=== PATIENT | male | born 1945 | race Caucasian/White ===

== ENCOUNTER 2024-05-02 12:46 | Emergency (ER) | payer MEDICARE, OTHER, SELFPAY ==
[2024-05-02 12:55] VITALS: BP 129/66; PULSE 95; TEMP 37.1; O2SAT 95; BMI 31.0
--- NOTE | 2024-05-02 13:07 | ED_ITS ---
HPI - Male Genitourinary 2 General: Chief complaint: Urogenital-Male Stated complaint: high fever, blood in urine, dr sent Time Seen by Provider: 05/02/24 13:04 History of Present Illness: 78-year-old male presents emergency room with complaints of elevated temp and hematuria. He has not felt well for the last several days. He was at the outpatient clinic earlier today and reportedly had a temp of 103 and had hematuria on a urine dip. States his temp is improved. He is not having any chest pain he has had a slight cough he has also had some myalgias. Initially had some loose stools but that has resolved. Associated symptoms: Reports hematuria; Deny dysuria Related Data Allergies Allergy/AdvReac Type Severity Reaction Status Date / Time Penicillins Allergy Unknown Verified 05/02/24 13:02 sulfamethoxazole (From Allergy Unknown Verified 05/02/24 13:02 Bactrim) trimethoprim (From Bactrim) Allergy Unknown Verified 05/02/24 13:02 Review of Systems 2 Const: Denies: fever(s) or chills Card: Denies: chest pain Resp: Denies: dyspnea GI: Denies: abdominal pain : Reports: hematuria; Denies: dysuria, urinary frequency or urinary urgency Musc: Denies: neck pain or back pain Skin/Breast: Denies: rash Physical Exam 2 Const: GENERAL APPEARANCE: cooperative ORIENTATION/CONSCIOUSNESS: Yes awake, Yes oriented to person, Yes oriented to place and Yes oriented to time HENMT: COMMON NORMALS: normocephalic, atraumatic and hearing grossly normal bilaterally HEAD & SCALP: normocephalic and atraumatic Resp: COMMON NORMALS: normal respiratory effort, No retractions, No use of accessory muscles and clear to auscultation bilaterally AUSCULTATION: clear to auscultation bilaterally Cardio: COMMON NORMALS: regular rate, regular rhythm and No murmurs present (Cardio) RATE: regular rate RHYTHM: regular rhythm GI: COMMON NORMALS: Soft to palpation and No hepatosplenomegaly present A USCULTATION: Yes normoactive bowel sounds PALPATION: Yes Soft to palpation, No Tenderness to palpation present (GI), No Guarding due to palpation present (GI) and Yes No hepatosplenomegaly present Extremity: COMMON NORMALS: normal to inspection, capillary refill normal, no clubbing, cyanosis or edema, no calf tenderness and no pedal edema Neuro: SENSORIUM/ORIENTATION: Yes oriented to person, Yes oriented to place and Yes oriented to time Skin: COMMON NORMALS: no rashes or lesions noted GENERAL SKIN EXAM: no rashes or lesions noted Course 2 Vital Signs: Vital signs: Vital Signs Temperature 98.8 F 05/02/24 12:55 Pulse Rate 95 05/02/24 14:37 Respiratory Rate 15 05/02/24 13:50 Blood Pressure 130/67 05/02/24 14:37 Pulse Oximetry 96 05/02/24 14:37 Oxygen Delivery Me thod Room Air 05/02/24 12:55 MDM - Male Medical Decision Making Patient has no fever here no hematuria. Did get a chest x-ray there is no acute infiltrates. We first went to stand him and he is very weak and had difficulty with balance over the longer was up the better he got he was able to walk turn and go back to the room without any assistance. He does have some mild hyponatremia but not enough to make him severely symptomatic. At this point he can be discharged home I do recommend that he follow-up with a repeat sodium with his primary care doctor in the next few days. He currently is being treated by his urologist for a bladder infection recommend he complete the course of antibiotics Lab Data 05/02/24 13:26 05/02/24 13:26 Radiology Impressions Chest X-Ray 05/02/24 14:35 Impression: Atherosclerosis. Laboratory Results WBC 5.94 10^3/uL (3.29-11.43) 05/02/24 13: RBC 4.91 10^6/uL (3.85-5.65) 05/02/24 13:26 Hgb 14.20 g/dL (11.27-16.99) 05/02/24 13:26 Hct 41.4 % (37-53) 05/02/24 13:26 MCV 84.3 fl (82-101) 05/02/24 13:26 MCH 28.9 pg (27-33) 05/02/24 13: MCHC 34.3 g/dL (30-55) 05/02/24 13: RDW 14.0 % (12.1-15.1) 05/02/24 13:26 Plt Count 139 10^3/cmm (157-399) L 05/02/24 13:26 MPV 9.7 fL (7.4-10.4) 05/02/24 13:26 Neut % (Auto) 64.1 % 05/02/24 13:26 Lymph % (Auto) 22.7 % 05/02/24 13:26 [place] % (Auto) 8.6 % 05/02/24 13:26 Eos % (Auto) 4.2 % 05/02/24 13:26 Baso % (Auto) 0.2 % 05/02/24 13:26 Neut # (Auto) 3.81 10^3/uL (1.8-7.7) 05/02/24 13:26 Lymph # (Auto) 1.4 10^3/uL (0.8-4.8) 05/02/24 13:26 [place] # (Auto) 0.5 10^3/uL (0.2-0.9) 05/02/24 13:26 Eos # (Auto) 0.3 10^3/uL (0.0-0.8) 05/02/24 13:26 Baso # (Auto) 0.0 10^3/uL (0.0-0.1) 05/02/24 13:26 Nucleated RBC % (auto) 0 % 05/02/24 13: Nucleated RBCs # 0.0 /100WBC 05/02/24 13:26 Sodium 128 mmol/L (136-145) L 05/02/24 13:26 Potassium 3.9 mmol/L (3.5-5.1) 05/02/24 13:26 Chloride 95 mmol/L (98-107) L 05/02/24 13:26 Carbon Dioxide 20 mmol/L (22-29) L 05/02/24 13:26 Anion Gap 16.9 (5-19) 05/02/24 13:26 BUN 23 mg/dL (8-23) 05/02/24 13:26 Creatinine 1.0 mg/dL (0.7-1.2) 05/02/24 13:26 GFR Calculation Not Reportable 05/02/24 13:26 Glucose 92 mg/dL (65-115) 05/02/24 13:26 Calculated Osmolality 269 mOsm/kg (285-295) L 05/02/24 13:26 Calcium 8.4 mg/dL (8.5-10.5) L 05/02/24 13:26 Total Bilirubin 0.3 mg/dL (0.15-1.2) 05/02/24 13:26 AST 24 U/L (0-40) 05/02/24 13:26 ALT 23 U/L (0-41) 05/02/24 13:26 Alkaline Phosphatase 36 U/L (40-130) L 05/02/24 13:26 Total Protein 7.3 g/dL (6.6-8.7) 05/02/24 13:26 Albumin 3.8 g/dL (3.5-5.2) 05/02/24 13:26 Globulin 3.5 g/dL (1.3-4.6) 05/02/24 13:26 Urine Color Yellow (Yellow) 05/02/24 13:08 Urine Appearance Clear (CLEAR) 05/02/24 13:08 Urine pH 5.5 (5-7) 05/02/24 13:08 Ur Specific Alexander 1.024 (1.005-1.030) 05/02/24 13:08 Urine Protein 1+ (Negative) A 05/02/24 13:08 Urine Glucose (UA) Negative (Normal) 05/02/24 13:08 Urine Ketones 1+ (Negative) H 05/02/24 13:08 Urine Blood 2+ (Negative) A 05/02/24 13:08 Urine Nitrate Negative (Negative) 05/02/24 13:08 Urine Bilirubin Negative (Negative) 05/02/24 13:08 Urine Urobilinogen 0.2 mg/dL (Negative) 05/02/24 13:08 Ur Leukocyte Esterase Negative (Negative) 05/02/24 13:08 Urine RBC 0-4 /hpf (0-2) H 05/02/24 13:08 Urine WBC 0-4 /hpf (0-5) H 05/02/24 13:08 Ur Squamous Epith Cells 0-4 /hpf (0-5) H 05/02/24 13:08 Amorphous Sediment 1+ /hpf 05/02/24 13:08 Urine Bacteria Trace /hpf (NONE) 05/02/24 13:08 Hyaline Casts 0-4 /lpf H 05/02/24 13:08 Fine Granular Casts 0-4 /lpf H 05/02/24 13:08 Urine Mucus 1+ /hpf 05/02/24 13:08 Influenza A (PCR) Negative (Negative) 05/02/24 13:20 Influenza Type B (PCR) Negative (Negative) 05/02/24 13:20 RSV (PCR) Negative (Negative) 05/02/24 13:20 SARS-CoV-2 (PCR) Negative (Negative) 05/02/24 13:20 All radiology interpretation(s) finalized by discharge Discharge Plan Discharge Patient Disposition: Home Clinical Impression: Hyponatremia, Urinary tract infection Condition: Stable Discharge Orders: Discharge ED (Routine); Ordered 05/02/24 Ordered By: Moe Lopez Referrals: Gem Noriega FNP [Primary Care Provider] - Discharge Diet: Usual diet Discharge Activity: Resume usual activity Patient Instructions: Opioid Safety, Pain Management Activity Restrictions/Additional Instructions: Thank you for choosing [facility] for your healthcare needs today. It is very important that you follow up as instructed or that you return to the Emergency Department should you have concerns or if your condition changes or worsens in any way. You were seen in the emergency room complaining of generally not feeling well is having blood in the urine fever. We have no fever at the time you are seen in the ER. Your white count is normal. Urine did not show significant amount of blood. You reported that you are being treated by your urologist for a bladder infection recommend completing that course of antibiotics. You should recheck your sodium with your doctor in the next few days. Print Language: Cook Islander Coding Level of Care Code ED Deputy Director Of Nursing for Osmin Smith
[2024-05-02 13:17] LABS: Bilirubin Urine Negative (Negative); Blood Urine 2+ (Negative); Glucose Urine UA Negative (Normal); Ketones Urine 1+ (Negative); Leukocyte Esterase Urine Negative (Negative); Nitrate Urine Negative (Negative); Protein Urine 1+ (Negative); Specific Gravity, Urine 1.024 (1.005-1.030); Urine Appearance Clear (CLEAR); Urine Color Yellow (Yellow); Urobilinogen Urine 0.2 mg/dL (Negative); pH Urine 5.5 (5-7)
[2024-05-02 13:29] LABS: UA Manual Slide Review YES
[2024-05-02 13:30] LABS: Add Urine Microscopic? YES
[2024-05-02 13:31] LABS: Bacteria Urine TRACE /hpf; Mucus Urine 1+ /hpf; RBC Urine 0-4 /hpf (0-2); Squamous Epithelial Cell Urine 0-4 /hpf (0-5); WBC Urine 0-4 /hpf (0-5)
[2024-05-02 13:32] LABS: Add Urine Culture? No; Amorphous Sediment Urine 1+ /hpf; Fine Granular Casts Urine 0-4 /lpf; Hyaline Casts Urine 0-4 /lpf
[2024-05-02 13:50] VITALS: BP 156/73; PULSE 75; RESP 15; O2SAT 95
[2024-05-02 13:50] LABS: Basophils % 0.2 %; Eosinophils # 0.3 10^3/uL (0.0-0.8); Eosinophils % 4.2 %; Hematocrit 41.4 % (37-53); Lymphocytes # 1.4 10^3/uL (0.8-4.8); Lymphocytes % 22.7 %; Mean Corpuscular HGB Conc 34.3 g/dL (30-55); Mean Corpuscular Hemoglobin 28.9 pg (27-33); Mean Corpuscular Volume 84.3 fl (82-101); Mean Platelet Volume 9.7 fL (7.4-10.4); Monocytes # 0.5 10^3/uL (0.2-0.9); Monocytes % 8.6 %; Neutrophils # 3.81 10^3/uL (1.8-7.7); Neutrophils % 64.1 %; Nucleated Red Blood Cells % 0 %; Platelet Count 139 10^3/cmm (157-399); Red Blood Count 4.91 10^6/uL (3.85-5.65); White Blood Count 5.94 10^3/uL (3.29-11.43)
[2024-05-02 14:11] LABS: Alanine Aminotransferase 23 U/L (0-41); Albumin Level 3.8 g/dL (3.5-5.2); Alkaline Phosphatase 36 U/L (40-130); Anion Gap 16.9 (5-19); Aspartate Amino Transferase 24 U/L (0-40); Blood Urea Nitrogen 23 mg/dL (8-23); Calcium 8.4 mg/dL (8.5-10.5); Carbon Dioxide 20 mmol/L (22-29); Chloride 95 mmol/L (98-107); Creatinine Clr Calc Pharmacy 65.0443; Globulin 3.5 g/dL (1.3-4.6); Glucose 92 mg/dL (65-115); Osmolality Calculated 269 mOsm/kg (285-295); Potassium 3.9 mmol/L (3.5-5.1); Sodium 128 mmol/L (136-145); Total Bilirubin 0.3 mg/dL (0.15-1.2); Total Protein 7.3 g/dL (6.6-8.7)
[2024-05-02 14:12] LABS: Influenza A NEGATIVE (Negative); Influenza B NEGATIVE (Negative); Respiratory Syncytial Virus Ce NEGATIVE (Negative); SARS-CoV-2 PCR NEGATIVE (Negative)
--- NOTE | 2024-05-02 14:35 | XR_ITS ---
WS: [id number] Portable AP upright chest, 05/02/2024 Clinical Data: Fever Comparison: None. Findings: No nodules, masses or effusions are seen. The heart is normal. The pulmonary vascularity is not increased. No pneumonia or pneumothorax is seen. The aortic arch and descending thoracic aorta show mild tortuosity. XR/XR chest 1V portable [id number] Impression: Atherosclerosis.
[2024-05-02 14:37] VITALS: BP 130/67; PULSE 95; O2SAT 96
--- NOTE | 2024-05-02 14:55 | PC.NURSE ---
pt appeared unsteady, off balance while putting on coat. this nurse and ED provider at bedside, pt completed ambulation trial and denied feeling dizzy. pt gait was steady, states he feels better after standing. pt and deny assistance to vehicle, states wants to ambulate.
== END 2024-05-02 14:56 | disposition home or self-care (01) ==
PROVIDERS: Emergency Provider Family Medicine; PCP Nurse Practitioner Family
DX: E87.1 Hypo-osmolality and hyponatremia (principal); N39.0 Urinary tract infection, site not specified; Z11.52 Encounter for screening for COVID-19
CPT/HCPCS: 36415; 71045; 80053; 81001; 85025; 87637; 99284

== ENCOUNTER 2024-05-03 20:02 | Inpatient (IN) | payer MEDICARE, OTHER, SELFPAY ==
[2024-05-03 20:07] VITALS: BP 124/79; PULSE 96; RESP 16; TEMP 37.7; O2SAT 95; BMI 31.0
[2024-05-03 21:36] LABS: Basophils % 0.4 %; Eosinophils # 0.1 10^3/uL (0.0-0.8); Eosinophils % 1.3 %; Hematocrit 43.5 % (37-53); Lymphocytes # 1.2 10^3/uL (0.8-4.8); Lymphocytes % 26.6 %; Mean Corpuscular HGB Conc 35.2 g/dL (30-55); Mean Corpuscular Hemoglobin 29.4 pg (27-33); Mean Corpuscular Volume 83.7 fl (82-101); Mean Platelet Volume 9.6 fL (7.4-10.4); Monocytes # 0.4 10^3/uL (0.2-0.9); Monocytes % 8.5 %; Neutrophils # 2.89 10^3/uL (1.8-7.7); Nucleated Red Blood Cells % 0 %; Platelet Count 133 10^3/cmm (157-399); Red Cell Distribution Width 13.9 % (12.1-15.1); White Blood Count 4.59 10^3/uL (3.29-11.43)
--- NOTE | 2024-05-03 21:39 | ED_ITS ---
HPI - Weakness 2 General: Chief complaint: Weakness Stated complaint: WEAKNESS Time Seen by Provider: 05/03/24 20:22 History of Present Illness: 78-year-old male presents emergency depa rtment along with his . He required 2 person assistance in order to get him from his couch onto a stretcher with EMS. Patient explains that he has severe weakness. He started getting sick on Monday, 4 days ago. He had 2 episodes of vomiting that day nausea, and an episode of diarrhea. The next day he had another episode of diarrhea along with nausea. He reports during those 2 days he also had fever. Patient explains that the diarrhea and vomiting stopped on Monday but he is continued to have intermittent fever. He cannot figure out why. He was seen at his PCP office yesterday morning and then in the emergency department. He had hyponatremia but otherwise had no significant findings. Chest x-ray was negative, flu COVID and RSV PCR's were negative, urine analysis was negative, no leukocytosis, and no significant vital abnormalities. Patient denies travel. He denies tick bites. He did start taking Bactrim on April 26 for bacteria in his urine. He was put on it because he visited his urologist for a scheduled appointment and had some bacteria in his urine. The patient is listed as having an allergy to sulfamethoxazole and trimethoprim on our allergy sheet. It is unclear whether this is contributing. The patient denies any headache, confusion, strokelike symptoms, visual changes, runny nose, sore throat, ear pain, neck pain, back pain, chest pain, shortness of breath, coughing, stomach pain, dysuria, difficulty urinating, hematuria, joint swelling, joint aches, injuries or any other symptoms besides anorexia and generalized weakness. I did find on my physical examination a rash that he had not noticed. Associated symptoms: Denies chest pain, chills, dysuria, headache(s) or syncope Review of Systems 2 General: Reports: 10 or more systems reviewed and unremarkable except in HPI and below Const: Denies: chills or body aches Eyes: Denies: change in vision ENMT: Denies: throat pain Card: Denies: chest pain, edema or syncope Resp: Denies: dyspnea or productive cough GI: Denies: abdominal pain : Denies: flank pain, dysuria or urinary frequency Musc: Denies: neck pain, back pain, extremity pain or extremity swelling Skin/Breast: Denies: rash or erythema Neuro: Denies: headache(s), numbness in extremities or lack of coordination Physical Exam 2 Narrative: EXAM NARRATIVE: Patient is somewhat shaky and generalized weakness is noted. He has to have assistance to sit up. I did notice that he has a rash. There is a petechial rash on his ankles and shins. There is a faint macular erythematous rash on his left chest and right chest as well as his back. This is mostly blanching. There are a few areas of erythema edema that do not barney. Const: COMMON NORMALS: no limitations, alert and well nourished EXAM LIMITATIONS: no altered mental status HENMT: COMMON NORMALS: normocephalic, atraumatic and external ears normal H EAD & SCALP: normocephalic and atraumatic EXTERNAL EAR: Yes external ears normal MOUTH: no muffled voice Eye: COMMON NORMALS: EOMs intact bilaterally, conjunctivae normal and no scleral icterus CONJUNCTIVA: Yes conjunctivae normal Neck/C-Spine: COMMON NORMALS: no JVD GENERAL: Yes normal visual inspection and Yes trachea midline Resp: COMMON NORMALS: normal respiratory effort, No use of accessory muscles and clear to auscultation bilaterally AUSCULTATION: clear to auscultation bilaterally Cardio: COMMON NORMALS: no JVD, regular rate and regular rhythm RATE: r egular rate RHYTHM: regular rhythm GI: COMMON NORMALS: Soft to palpation and non-tender PALPATION: Yes Soft to palpation and No Guarding due to palpation present (GI) Extremity: COMMON NORMALS: normal to inspection Neuro: COMMON NORMALS: moves all extremities, no focal motor deficits and no sensory deficits noted SENSORIUM/ORIENTATION: Yes alert SPEECH: speech normal Psych: COMMON NORMALS: mental status grossly normal, Normal thought process present, cooperative, normal affect and speech normal SPEECH: Yes normal speech THOUGHT PROCESS: Normal thought process present Skin: COMMON NORMALS: turgor normal and no jaundice GENERAL SKIN EXAM: t urgor normal Course 2 Vital Signs: Vital signs: Vital Signs Temperature 100 F H 05/03/24 20:07 Pulse Rate 96 05/03/24 20:07 Respiratory Rate 16 05/03/24 20:07 Blood Pressure 124/79 05/03/24 20:07 Pulse Oximetry 95 05/03/24 20:07 Oxygen Delivery Me thod Room Air 05/03/24 20:07 MDM - Weakness Medical Decision Making Patient's primary concern today is generalized weakness and inability to stand or even sit without assistance. He is normally ambulatory and does all of his own ADLs without any assistive devices. He is had intermittent fever ranging from 99 to 103 degrees for the last 5 days. He had nausea and vomiting with a little bit of diarrhea the first 2 days. He is tested positive for COVID flu and RSV by PCR. His chest x-ray yesterday was negative. His lungs are clear. He has no subjective or objective respiratory symptoms. The only thing that change in his medical history is he was put on Bactrim which she is reportedly allergic to. He does have some petechial rash around his ankles and calves and to a lesser degree on his thorax laterally. He denies tick bites or travel. He has no abdominal symptoms since his last diarrhea. He is only eating a couple pieces of toast and maybe 1 other small meal per day. Differential diagnosis would include medication side effect, viral illness, hyponatremia, dehydration, renal failure, other occult infectious disease process (tickborne illness, occult bacteremia, etc.), occult neoplastic process, autoimmune disease, other. Patient has no meningeal signs or symptoms. I did order blood cultures and a lactic acid for screening today. I ordered 2 L of IV fluids as he has reported significantly reduced p.o. intake over the last 5 days. He has a low-grade temperature of 100 degrees here. His heart rate is right around 100. Blood pressure is normal. Urine analysis yesterday was reviewed and there is no signs of infection. Chest x-ray from yesterday was reviewed. Update Patient sodium has dropped even more. It is now 122. This is significant enough to cause extreme weakness, particularly at his age. We do not have his baseline sodium from before he became ill. Patient's platelets have also dropped from yesterday. They are now at 133,000. Patient's BUN and creatinine have gone up slightly. He now has a transaminitis. It has been very cold and the ground has been frozen. Therefore this is unlikely to be a tickborne infection although it is not impossible. This would be more likely to be a viral infection. We could consider viral panels as an inpatient if indicated to determine the exact diagnosis. UA remains without any infection. Patient is going to need to be admitted for his weakness, hyponatremia, etc. I have paged the hospitalist. Lab Data 05/03/24 21:22 05/03/24 21:22 Laboratory Results WBC 4.59 10^3/uL (3.29-11.43) 05/03/24 21:22 RBC 5.20 10^6/uL (3.85-5.65) 05/03/24 21:22 Hgb 15.30 g/dL (11.27-16.99) 05/03/24 21:22 Hct 43.5 % (37-53) 05/03/24 21:22 MCV 83.7 fl (82-101) 05/03/24 21: MCH 29.4 pg (27-33) 05/03/24 21: MCHC 35.2 g/dL (30-55) 05/03/24 21:22 RDW 13.9 % (12.1-15.1) 05/03/24 21: Plt Count 133 10^3/cmm (157-399) L 05/03/24 21:22 MPV 9.6 fL (7.4-10.4) 05/03/24 21: Neut % (Auto) 63.0 % 05/03/24 21: Lymph % (Auto) 26.6 % 05/03/24 21: [place] % (Auto) 8.5 % 05/03/24: Eos % (Auto) 1.3 % 05/03/24: Baso % (Auto) 0.4 % 05/03/24: Neut # (Auto) 2.89 10^3/uL (1.8-7.7) 05/03/24 21: Lymph # (Auto) 1.2 10^3/uL (0.8-4.8) 05/03/24: [place] # (Auto) 0.4 10^3/uL (0.2-0.9) 05/03/24 21:22 Eos # (Auto) 0.1 10^3/uL (0.0-0.8) 05/03/24 21: Baso # (Auto) 0.0 10^3/uL (0.0-0.1) 05/03/24 21:22 Nucleated RBC % (auto) 0 % 05/03/24 21:22 Nucleated RBCs # 0.0 /100WBC 05/03/24 21:22 Sodium 122 mmol/L (136-145) L 05/03/24 21:22 Potassium 3.5 mmol/L (3.5-5.1) 05/03/24 21:22 Chloride 89 mmol/L (98-107) L 05/03/24 21:22 Carbon Dioxide 22 mmol/L (22-29) 05/03/24 21:22 Anion Gap 14.5 (5-19) 05/03/24 21:22 BUN 25 mg/dL (8-23) H 05/03/24 21:22 Creatinine 1.3 mg/dL (0.7-1.2) H 05/03/24 21:22 GFR Calculation Not Reportable 05/03/24 21:22 Glucose 102 mg/dL (65-115) 05/03/24 21:22 Calculated Osmolality 259 mOsm/kg (285-295) L 05/03/24 21:22 Lactic Acid 1.5 mmol/L (0.5-2.2) 05/03/24 21:22 Calcium 8.4 mg/dL (8.5-10.5) L 05/03/24 21:22 Total Bilirubin 0.4 mg/dL (0.15-1.2) 05/03/24 21:22 AST 289 U/L (0-40) H 05/03/24 21:22 ALT 108 U/L (0-41) H 05/03/24 21:22 Alkaline Phosphatase 39 U/L (40-130) L 05/03/24 21:22 Total Protein 7.4 g/dL (6.6-8.7) 05/03/24 21:22 Albumin 3.8 g/dL (3.5-5.2) 05/03/24 21:22 Globulin 3.6 g/dL (1.3-4.6) 05/03/24 21:22 Urine Color Yellow (Yellow) 05/03/24 22:02 Urine Appearance Cloudy (CLEAR) A 05/03/24 22:02 Urine pH 5.0 (5-7) 05/03/24 22:02 Ur Specific [place] 1.023 (1.005-1.030) 05/03/24 22:02 Urine Protein 2+ (Negative) A 05/03/24 22:02 Urine Glucose (UA) Negative (Normal) 05/03/24 22:02 Urine Ketones 1+ (Negative) H 05/03/24 22:02 Urine Blood 3+ (Negative) A 05/03/24 22:02 Urine Nitrate Negative (Negative) 05/03/24 22:02 Urine Bilirubin Negative (Negative) 05/03/24 22:02 Urine Urobilinogen 1.0 mg/dL (Negative) 05/03/24 22:02 Ur Leukocyte Esterase Negative (Negative) 05/03/24 22:02 Urine RBC 0-4 /hpf (0-2) H 05/03/24 22:02 Urine WBC 0-4 /hpf (0-5) H 05/03/24 22:02 Ur Squamous Epith Cells 0-4 /hpf (0-5) H 05/03/24 22:02 Amorphous Sediment Not Reportable 05/03/24 22:02 Urine Bacteria Trace /hpf (NONE) 05/03/24 22:02 Coarse Granular Casts 5-10 /lpf H 05/03/24 22:02 Urine Mucus Trace /hpf 05/03/24 22:02 No radiology studies performed this visit Discharge Plan Discharge Patient Disposition: Admitted As Inpatient Clinical Impression: Hyponatremia, Dehydration, Petechial rash, Ambulatory dysfunction, Generalized weakness, Transaminitis Condition: Stable Referrals: Gem Noriega FNP [Primary Care Provider] - Print Language: Amharic Coding Level of Care Code ED Barrel Rifler Operator for Chg Fwd Related Data Allergies Allergy/AdvReac Type Severity Reaction Status Date / Time Penicillins Allergy Unknown Verified 05/02/24 13:02 sulfamethoxazole (From Allergy Unknown Verified 05/02/24 13:02 Bactrim) trimethoprim (From Bactrim) Allergy Unknown Verified 05/02/24 13:02
[2024-05-03 21:53] LABS: Alanine Aminotransferase 108 U/L (0-41); Albumin Level 3.8 g/dL (3.5-5.2); Alkaline Phosphatase 39 U/L (40-130); Anion Gap 14.5 (5-19); Aspartate Amino Transferase 289 U/L (0-40); Blood Urea Nitrogen 25 mg/dL (8-23); Calcium 8.4 mg/dL (8.5-10.5); Carbon Dioxide 22 mmol/L (22-29); Chloride 89 mmol/L (98-107); Creatinine Clr Calc Pharmacy 50.0341; Globulin 3.6 g/dL (1.3-4.6); Glucose 102 mg/dL (65-115); Lactic Sepsis W/Reflex 1.5 mmol/L (0.5-2.2); Osmolality Calculated 259 mOsm/kg (285-295); Potassium 3.5 mmol/L (3.5-5.1); Sodium 122 mmol/L (136-145); Total Bilirubin 0.4 mg/dL (0.15-1.2); Total Protein 7.4 g/dL (6.6-8.7)
[2024-05-03] MEDS: sodium chloride 0.9% 1,000 ML 999 ML IV ×2 (22:00)
[2024-05-03] MEDS: acetaminophen 325 mg Tablet 650 MG PO (22:00)
[2024-05-03 22:10] LABS: Bilirubin Urine Negative (Negative); Blood Urine 3+ (Negative); Glucose Urine UA Negative (Normal); Ketones Urine 1+ (Negative); Leukocyte Esterase Urine Negative (Negative); Nitrate Urine Negative (Negative); Protein Urine 2+ (Negative); Specific Gravity, Urine 1.023 (1.005-1.030); Urine Appearance Cloudy (CLEAR); Urine Color Yellow (Yellow)
[2024-05-03 22:18] LABS: Add Urine Culture? No; Add Urine Microscopic? YES; Bacteria Urine TRACE /hpf; Mucus Urine TRACE /hpf; RBC Urine 0-4 /hpf (0-2); Squamous Epithelial Cell Urine 0-4 /hpf (0-5); WBC Urine 0-4 /hpf (0-5)
--- NOTE | 2024-05-03 22:25 | P.HP_ITS ---
Providers/Chief Complaint 2 Primary Care Provider: ROSENDO Call Chief Complaint: WEAKNESS History of Present Illness Michael Che is a 78 year old male with history of PE/DVT on Eliquis, contrast Trelegy inhaler no other medical condition presented with chief complaint of generalized weakness and fatigue. Patient is stating that since Monday he has experienced 2 episode of emesis with 1 episode of loose stool associated with fever, as per the when EMS took temperature it was 107 however without getting Tylenol in the ER temperature is now 100.0. Patient is stating that he has no energy at all it took 2 people to get him out of couch to go into the ambulance today, he has not noticed any chest pain. Since Monday he has not eaten well, he has been on tea and toast diet. Patient is stating that recently he has finished Bactrim for his UTI which was prescribed by urologist. Patient has red blotchy patch all over his body. In the ER he has been diagnosed with severe hyponatremia SHENG, abnormal transaminases Patient does not drink alcohol, does not smoke Patient is clinically dehydrated Low-grade fever Concern for UTI/prostatitis I requested CT abdomen pelvis which is consistent with duodenitis Gallbladder stones without bili restriction 6 mm urinary bladder stone present as well, no signs of hydronephrosis Review of Systems 2 Const: Reports: fever(s) and chills Eyes: Denies: change in vision ENMT: Denies: throat pain Card: Denies: chest pain Resp: Reports: dyspnea GI: Reports: abdominal pain, nausea and vomiting : Denies: flank pain Musc: Denies: neck pain Medications/Allergies Allergies Allergy/AdvReac Type Severity Reaction Status Date / Time Penicillins Allergy Unknown Verified 05/02/24 13:02 sulfamethoxazole (From Allergy Unknown Verified 05/02/24 13:02 Bactrim) trimethoprim (From Bactrim) Allergy Unknown Verified 05/02/24 13:02 Vitals/I&O/Wt Last Vital Signs Temp 100 F H 05/03/24 20:07 Pulse 96 05/03/24 20:07 Resp 16 05/03/24 20:07 BP 124/79 05/03/24 20:07 Pulse Ox 95 05/03/24 20:07 O2 Del Method Room Air 05/03/24 20:07 05/03/24 05/03/24 05/03/24 06:59 14:59 22:59 Intake Total 0 / 0 Balance 0 / 0 Weight last 48 hrs Weight 92.533 kg Physical Exam 2 Narrative: Awake and alert Clinically dehydrated GCS 15 Low-grade fever Pleasant and cooperative AOx4 No right upper quadrant tenderness Madrigal sign negative Abdomen soft no sign of peritonitis GCS 15 nonfocal neuroexam Lower extremity no edema Papular rash all over his body S1, S2 tachycardia Currently on room air Data 05/03/24 21:22 05/03/24 23:02 A&P Assessment and plan (1) Hyponatremia: (2) Urinary tract infection: Plan Nausea vomiting diarrhea Clinical signs of dehydration Hypovolemic hyponatremia Start IV fluids Check uric acid TSH, urine and serum osmolality Sodium check every 4 hours Generalized weakness and fatigue likely related to severe dehydration and hyponatremia Patient recently finished Bactrim treatment for UTI, developed papular rash Patient has signs of duodenitis, start metronidazole and ceftriaxone Recheck sodium in the ER No active focal deficit Slow replenishment of sodium needed only up to 6 to 9 meq in 24 hours Abnormal transaminases: Patient has gallstones no signs of biliary obstruction, urinary bladder stone, No signs of hydronephrosis Mild SHENG If creatinine worsen with high-grade fever patient may need urology consultation Drug rash: I have advised patient not to take Bactrim anymore Full code Regular diet Patient takes Eliquis for history of DVT/PE which I would continue PDMP PDMP Reviewed: Not Reviewed Attestations 2 Medical Necessity Statement*: More than 2 midnights anticipated for management evaluation of duodenitis, severe hyponatremia Diagnoses Hyponatremia E87.1 Urinary tract infection N39.0
--- NOTE | 2024-05-03 22:32 | CTR_ITS ---
PROCEDURE INFORMATION: Exam: CT Chest Without Contrast; Diagnostic Exam date and time: 05/03/2024 10:48 PM Age: 78 years old Clinical indication: Abnormal findings; Abnormal lab test; Abnormal kidney function lab tests and elevated liver enzymes; Nausea and vomiting; Other: N/a; Fever with n/v/d. Hyponatremia, lissette, and elevated liver enzymes. ; Additional info: Na 122 TECHNIQUE: Imaging protocol: Diagnostic computed tomography of the chest without contrast. Radiation optimization: All CT scans at this facility use at least one of these dose optimization techniques: automated exposure control; mA and/or kV adjustment per patient size (includes targeted exams where dose is matched to clinical indication); or iterative reconstruction. COMPARISON: CR XR chest 1V portable [id number] 05/02/2024 2:42 PM RADIATION DOSE METRICS: Total DLP (mGy-cm): 1028.06 FINDINGS: Lungs: 4 mm noncalcified left lower lobe pulmonary nodule. Bibasilar dependent atelectasis. No consolidation. Pleural spaces: Tiny bilateral pleural effusions. Heart: Unremarkable. No cardiomegaly. No pericardial effusion. Coronary arteries: Coronary artery calcifications are present. Lymph nodes: Unremarkable. No enlarged lymph nodes. Vasculature: Unremarkable. No aortic aneurysm. Bones/joints: Unremarkable. No acute fracture. Soft tissues: Unremarkable. CT Chest at 12 months. (Reference: Bert) References: Bert Aleman et al. Guidelines for Management of Incidental Pulmonary Nodules Detected on CT Images: From the Fleischner Society 2017. Radiology. 2017;284(1):228-243. PROCEDURE INFORMATION: Exam: CT Abdomen And Pelvis Without Contrast Exam date and time: 05/03/2024 10:48 PM Age: 78 years old Clinical indication: Abnormal findings; Abnormal lab test; Abnormal kidney function lab tests and elevated liver enzymes; Nausea and vomiting; Other: N/a; Fever with n/v/d. Hyponatremia, lissette, and elevated liver enzymes. ; Additional info: Na 122 TECHNIQUE: Imaging protocol: Computed tomography of the abdomen and pelvis without contrast. Radiation optimization: All CT scans at this facility use at least one of these dose optimization techniques: automated exposure control; mA and/or kV adjustment per patient size (includes targeted exams where dose is matched to clinical indication); or iterative reconstruction. COMPARISON: CR XR chest 1V portable [id number] 05/02/2024 2:42 PM RADIATION DOSE METRICS: Total DLP (mGy-cm): 1028.06 FINDINGS: Liver: Normal. No mass. Gallbladder and biliary ducts: Multiple gallstones are present in an otherwise normal-appearing gallbladder. No evidence of biliary obstruction. Pancreas: Normal. No ductal dilation. Spleen: Normal. No splenomegaly. Adrenal glands: Normal. No mass. Kidneys and ureters: 3 cm simple left renal cyst. Stomach and bowel: Circumferential wall thickening in the 2nd portion of the duodenum with mild adjacent fat stranding. Colonic diverticulosis is present without diverticulitis. Appendix: No evidence of appendicitis. Intraperitoneal space: Unremarkable. No free air. No significant fluid collection. Vasculature: Aortoiliac atherosclerotic disease is seen without evidence of aneurysm. Lymph nodes: Unremarkable. No enlarged lymph nodes. Urinary bladder: 6 mm urinary bladder stone. Mild apparent slightly hyperdense debris in the urinary bladder. Reproductive: Moderate nonspecific prostate enlargement. Bones/joints: Unremarkable. No acute fracture. Soft tissues: Unremarkable. CT/[place] [id number] IMPRESSION: 1. Tiny bilateral pleural effusions. 2. 4 mm noncalcified left lower lobe pulmonary nodule. For patients at low risk (minimal or absent history of smoking and of other known risk factors), no routine follow-up is indicated. For patients at high risk (history of smoking or of other known risk factors), consider optional IMPRESSION: 1. Circumferential wall thickening in the 2nd portion of the duodenum with mild adjacent fat stranding. Findings are suggestive of acute duodenitis. Peptic ulcer disease is not excluded. No evidence of perforation. 2. Cholecystolithiasis without evidence of cholecystitis or biliary obstruction. 3. 6 mm urinary bladder stone. 4. Mild apparent slightly hyperdense debris in the urinary bladder. Correlation with urinalysis is recommended. COMMENTS: Consistent with the [employer]'s Incidental Findings Committee white paper (J Am Thom Radiol 2018): Any incidental renal lesion less than 1 cm or classified as too small to characterize, or any incidental cystic renal lesion characterized as simple-appearing, is likely benign. No follow-up imaging is recommended for these lesions per consensus recommendations based on imaging criteria.
[2024-05-03] MEDS: cefTRIAXone 2,000 mg SDV 2000 MG IVP (22:52)
[2024-05-03] MEDS: heparin 5,000 unit/mL INJ 1 mL 5000 UNIT SUBCUT (22:52)
[2024-05-03 23:11] VITALS: BP 122/61; PULSE 85; RESP 18; O2SAT 92
[2024-05-03 23:23] LABS: Sodium 122 mmol/L (136-145)
[2024-05-03 23:24] LABS: Thyroid Stimulating Hormone 1.87 uIU/mL (0.27-4.20); Vitamin B12 537 pg/mL (232-1245)
[2024-05-03 23:28] LABS: Alcohol Level < 10 mg/dL (0-10)
[2024-05-03 23:30] VITALS: BP 122/61; PULSE 87; RESP 16; O2SAT 94
[2024-05-03 23:39] LABS: Estmated Average Glucose 114; Hemoglobin A1C 5.6 % (4.0-6.0)
[2024-05-03 23:56] VITALS: BP 115/67; PULSE 80; RESP 14; O2SAT 93
[2024-05-04] VITALS (9 sets, daily range): BP systolic 118–146; BP diastolic 64–72; PULSE 86–96; RESP 16–18; TEMP 36.7–38.1; O2SAT 92–94; BMI 29.7
[2024-05-04] MEDS: metroNIDAZOLE 500 MG Tablet PO ×4 (00:32→21:35)
[2024-05-04] MEDS: pantoprazole 40 mg SDV IVP ×2 (00:32→13:24)
[2024-05-04] MEDS: sodium chloride 0.9% 1,000 ML 75 ML IV ×2 (00:32→13:29)
[2024-05-04 01:52] LABS: Amphetamines Screen Urine Negative (Negative); Barbiturates Screen Urine Negative (Negative); Benzodiazepines Screen Urine Positive (Negative); Cocaine Screen Urine Negative (Negative); Opiate Screen Urine Negative (Negative); PCP Screen Urine Negative (Negative); THC Screen Urine Negative (Negative)
[2024-05-04 02:01] LABS: Urine Random Sodium 27 mmol/L
[2024-05-04 02:06] LABS: Creatinine Urine, Random 175 mg/dL (39-259); Microalbumin Random Urine 35 ug/dL (0-20)
[2024-05-04 02:07] LABS: Microalbum Creatinine Ratio Ur 200 mg/dL (0-20)
[2024-05-04 03:59] LABS: Basophils % 0.5 %; Eosinophils # 0.1 10^3/uL (0.0-0.8); Eosinophils % 2.4 %; Hematocrit 41.9 % (37-53); Lymphocytes # 1.4 10^3/uL (0.8-4.8); Lymphocytes % 37.5 %; Mean Corpuscular HGB Conc 34.4 g/dL (30-55); Mean Corpuscular Hemoglobin 29.3 pg (27-33); Mean Corpuscular Volume 85.2 fl (82-101); Mean Platelet Volume 10.3 fL (7.4-10.4); Monocytes # 0.4 10^3/uL (0.2-0.9); Monocytes % 9.3 %; Neutrophils # 1.88 10^3/uL (1.8-7.7); Nucleated Red Blood Cells % 0 %; Platelet Count 108 10^3/cmm (157-399); Red Blood Count 4.92 10^6/uL (3.85-5.65); Red Cell Distribution Width 14.2 % (12.1-15.1); White Blood Count 3.76 10^3/uL (3.29-11.43)
[2024-05-04 04:15] LABS: Magnesium 2.1 mg/dL (1.7-2.3); Phosphorus 3.1 mg/dL (2.5-4.5)
[2024-05-04 04:26] LABS: Sodium 127 mmol/L (136-145)
[2024-05-04 07:02] LABS: Sodium 122 mmol/L (136-145)
[2024-05-04] MEDS: apixaban 5 mg Tablet PO ×2 (09:29→21:35)
[2024-05-04] MEDS: tamsulosin 0.4 mg Capsule PO (09:29)
--- NOTE | 2024-05-04 11:02 | PC.CHAP ---
Pastoral Care Encounter/Spiritual Assessment Type of Contact [] Declined grain oilseed or pasture grower visit [] Patient/Family/Request visit [] Outpatient visit [] Follow-up visit [] Physician referral [] Code/Alert [] Routine visit [] Staff referral [] Actively dying [X] Patient sleeping [] Family support [] [] Out of room [] Palliative care [] [] Receiving care in room [] Pre-surgical visit [] Trauma [] Long length of stay [] ICU visit [] Other: Relational/Emotional Strength [] Patient feels connected with others/family/visitors/staff [] Distress [] Loneliness/isolation [] Abandonment Spirituality of Patient [] Person of Winsome [] Attends Orthodoxy of their Winsome [] Believes in Prayer [] Reads Bible or Jehovah'S Witness materials [] There are Spiritual issues to be addressed Electric Razor Mechanic Interventions [] Prayer [] Active listening [] Non-anxious presence [] Spiritual/emotional support [] Crisis/trauma care [] Spiritual counseling [] Bereavement support [] Provided bereavement packet [] Provided Bible/devotional materials [] Provided toy/stuffed animal, coloring book to patient or family member [] Provided Communion [] Anointing/[place] [] Salvation [] Completed spiritual assessment [] Other: Impact on Illness or Injury [] Angry [] Fearful [] Anxious [] Often cries [] Exhaustion [] Unable to work [] Unable to attend confucianism [] Unable to walk/stand [] Unable to read [] Unable to drive [] Unable to eat/drink [] Unable to sleep [] Unable to be with family [] Patient intubated [] Other: Summary Time spent with patient
[2024-05-04 11:22] LABS: Sodium 123 mmol/L (136-145)
--- NOTE | 2024-05-04 14:09 | P.PN_ITS ---
Subjective 2 Subjective: Patient was seen this morning, he is alert oriented x 3, following all commands, does report generalized weakness Vitals/I&O/Wt Last Vital Signs Temp 100.6 F H 05/04/24 11:53 Pulse 92 05/04/24 11:53 Resp 17 05/04/24 11:53 BP 121/72 05/04/24 11:53 Pulse Ox 93 05/04/24 11:53 O2 Del Method Room Air 05/04/24 11:53 05/03/24 05/04/24 05/04/24 22:59 06:59 14:59 Intake Total 0 / 0 1000 / 1000 1211.25 / 1211.25 Output Total 200 / 200 200 / 200 Balance 0 / 0 800 / 800 1011.25 / 1011.25 Weight last 48 hrs Weight 88.768 kg Weight 88.677 kg Weight 92.533 kg Physical Exam 2 Const: COMMON NORMALS: no acute distress and patient oriented x3 Resp: COMMON NORMALS: normal respiratory effort, No retractions, No use of accessory muscles and clear to auscultation bilaterally AUSCULTATION: clear to auscultation bilaterally Cardio: COMMON NORMALS: regular rate, regular rhythm, S1 normal heart sound present and S2 normal heart sound present RATE: regular rate RHYTHM: r egular rhythm HEART SOUNDS: S1 normal heart sound present and S2 normal heart sound present GI: COMMON NORMALS: Normal to inspection, nondistended, normoactive bowel sounds present and non-tender Extremity: COMMON NORMALS: no pedal edema Neuro: COMMON NORMALS: patient oriented x3 Psych: COMMON NORMALS: mental status grossly normal Data 05/04/24 02:44 05/04/24 10:53 Micro: Microbiology 05/03/24 22:15 Blood Culture - Preliminary Blood SPECIMEN COLLECTED 05/03/24 22:20 Blood Culture - Preliminary Blood SPECIMEN COLLECTED A&P Assessment and plan (1) Hyponatremia: (2) Urinary tract infection: (3) Duodenitis: Plan duodenitis 1. Circumferential wall thickening in the 2nd portion of the duodenum with mild adjacent fat stranding. Findings are suggestive of acute duodenitis. Peptic ulcer disease is not excluded. No evidence of perforation. -Protonix, Carafate -Flagyl, Rocephin SHENG, IV fluids Hypovolemic hyponatremia, IV fluids, Generalized weakness and fatigue likely related to UTI, hyponatremia Bactrim toxicity SHENG, hyponatremia Transaminitis -No hyperbilirubinemia CT scan shows 2. Cholecystolithiasis without evidence of cholecystitis or biliary obstruction. -Ultrasound abdomen -HIV, acute hep panel -Monitor LFTs, lipase Drug rash: I have advised patient not to take Bactrim anymore Dress syndrome? 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
[2024-05-04 14:26] LABS: Sodium 123 mmol/L (136-145)
[2024-05-04 14:49] LABS: HIV 1 & 2 Antibody Non-Reactive (Non-Reactiv); HIV 1 & 2 Antigen Non-Reactive (Non-Reactiv)
[2024-05-04 14:59] LABS: Hepatitis A Antibody IgM Non-Reactive (Nonreactive); Hepatitis B Core IgM Non-Reactive (Nonreactive); Hepatitis B Surface Antigen Non-Reactive (Nonreactive)
[2024-05-04] MEDS: sucralfate 1 gm Tablet PO (15:07)
[2024-05-04] MEDS: sodium chloride 1 gm Tablet PO (17:38)
[2024-05-04 17:53] LABS: Hepatitis C Virus Antibody Non-Reactive (Nonreactive)
[2024-05-04 19:00] LABS: Sodium 126 mmol/L (136-145)
[2024-05-04] MEDS: cefTRIAXone 2,000 mg SDV 2000 MG IVP (21:35)
[2024-05-04 22:41] LABS: Sodium 127 mmol/L (136-145)
[2024-05-05] VITALS (7 sets, daily range): BP systolic 107–147; BP diastolic 62–77; PULSE 82–95; RESP 16–19; TEMP 36.7–37.8; O2SAT 92–95
[2024-05-05 02:05] LABS: Basophils % 0.3 %; Eosinophils # 0.1 10^3/uL (0.0-0.8); Eosinophils % 2.7 %; Hematocrit 35.6 % (37-53); Lymphocytes % 53.2 %; Mean Corpuscular HGB Conc 35.4 g/dL (30-55); Mean Corpuscular Hemoglobin 29.2 pg (27-33); Mean Corpuscular Volume 82.4 fl (82-101); Mean Platelet Volume 9.7 fL (7.4-10.4); Monocytes # 0.4 10^3/uL (0.2-0.9); Monocytes % 9.9 %; Neutrophils # 1.27 10^3/uL (1.8-7.7); Neutrophils % 33.9 %; Nucleated Red Blood Cells % 0 %; Platelet Count 98 10^3/cmm (157-399); Red Blood Count 4.32 10^6/uL (3.85-5.65); Red Cell Distribution Width 14.2 % (12.1-15.1); White Blood Count 3.74 10^3/uL (3.29-11.43)
[2024-05-05 02:23] LABS: Alanine Aminotransferase 98 U/L (0-41); Albumin Level 3.1 g/dL (3.5-5.2); Alkaline Phosphatase 40 U/L (40-130); Anion Gap 12.4 (5-19); Aspartate Amino Transferase 217 U/L (0-40); Blood Urea Nitrogen 18 mg/dL (8-23); Calcium 7.3 mg/dL (8.5-10.5); Carbon Dioxide 18 mmol/L (22-29); Chloride 100 mmol/L (98-107); Creatinine Clr Calc Pharmacy 63.7893; Globulin 2.5 g/dL (1.3-4.6); Glucose 101 mg/dL (65-115); Magnesium 1.8 mg/dL (1.7-2.3); Osmolality Calculated 266 mOsm/kg (285-295); Phosphorus 2.7 mg/dL (2.5-4.5); Potassium 3.4 mmol/L (3.5-5.1); Sodium 127 mmol/L (136-145); Total Bilirubin 0.2 mg/dL (0.15-1.2); Total Protein 5.6 g/dL (6.6-8.7)
[2024-05-05 02:29] LABS: Sodium 127 mmol/L (136-145)
[2024-05-05] MEDS: pantoprazole 40 mg SDV IVP ×2 (04:17→20:05)
[2024-05-05] MEDS: sodium chloride 0.9% 1,000 ML 50 ML IV (04:18)
[2024-05-05 06:22] LABS: Glucose Point of Care 97 mg/dL (70-110)
[2024-05-05 06:32] LABS: Sodium 132 mmol/L (136-145)
[2024-05-05] MEDS: sodium chloride 1 gm Tablet PO ×2 (09:08→18:40)
[2024-05-05] MEDS: metroNIDAZOLE 500 MG Tablet PO ×3 (09:08→20:05)
[2024-05-05] MEDS: sucralfate 1 gm Tablet PO ×2 (09:08→20:05)
[2024-05-05] MEDS: tamsulosin 0.4 mg Capsule PO (09:08)
[2024-05-05] MEDS: apixaban 5 mg Tablet PO ×2 (09:08→20:05)
[2024-05-05 10:16] LABS: Sodium 130 mmol/L (136-145)
[2024-05-05 14:04] LABS: Sodium 131 mmol/L (136-145)
--- NOTE | 2024-05-05 14:19 | P.PN_ITS ---
Subjective 2 Subjective: Patient was seen this morning, denies any fevers, chills, nausea, vomiting, denies any abdominal pain Vitals/I&O/Wt Last Vital Signs Temp 98.0 F 05/05/24 11:05 Pulse 84 05/05/24 11:05 Resp 16 05/05/24 08:13 BP 119/69 05/05/24 11:05 Pulse Ox 93 05/05/24 11:05 O2 Del Method Room Air 05/05/24 11:05 05/04/24 05/05/24 05/05/24 22:59 06:59 14:59 Intake Total 893.75 / 2105.00 465 / 2570.00 720 / 720 Output Total 400 / 900 400 / 1300 400 / 400 Balance 493.75 / 1205.00 65 / 1270.00 320 / 320 Weight last 48 hrs Weight 94.755 kg Weight 88.768 kg Weight 88.677 kg Weight 92.533 kg Physical Exam 2 Const: COMMON NORMALS: no acute distress and patient oriented x3 Resp: COMMON NORMALS: normal respiratory effort, No retractions, No use of accessory muscles and clear to auscultation bilaterally AUSCULTATION: clear to auscultation bilaterally Cardio: COMMON NORMALS: regular rate, regular rhythm, S1 normal heart sound present and S2 normal heart sound present RATE: regular rate RHYTHM: r egular rhythm HEART SOUNDS: S1 normal heart sound present and S2 normal heart sound present GI: COMMON NORMALS: Normal to inspection, nondistended, normoactive bowel sounds present and non-tender Extremity: COMMON NORMALS: no pedal edema Neuro: COMMON NORMALS: patient oriented x3, CN's II-XII intact bilaterally and moves all extremities Psych: COMMON NORMALS: mental status grossly normal Data 05/05/24 01:57 05/05/24 13:38 Micro: Microbiology 05/03/24 22:15 Blood Culture - Preliminary Blood NEGATIVE TO DATE 05/03/24 22:20 Blood Culture - Preliminary Blood NEGATIVE TO DATE A&P Assessment and plan (1) Hyponatremia: (2) Urinary tract infection: (3) Duodenitis: Plan duodenitis 1. Circumferential wall thickening in the 2nd portion of the duodenum with mild adjacent fat stranding. Findings are suggestive of acute duodenitis. Peptic ulcer disease is not excluded. No evidence of perforation. -Protonix, Carafate -Flagyl, Rocephin Urinary tract infection, Rocephin SHENG, IV fluids Hypovolemic hyponatremia, salt tabs, resolving, IV fluids discontinued Generalized weakness and fatigue likely related to UTI, hyponatremia Bactrim toxicity SHENG, hyponatremia Transaminitis -No hyperbilirubinemia CT scan shows 2. Cholecystolithiasis without evidence of cholecystitis or biliary obstruction. -Ultrasound abdomen US/US gall bladder [id number] IMPRESSION: 1. Cholelithiasis with gallbladder sludge and thickened gallbladder wall. Early acute cholecystitis can not be excluded. Clinical correlation is advised. If indicated, HIDA scan can be obtained for further evaluation 2. Likely fatty changes of the liver. -No significant right upper quadrant pain to palpation -Continue IV antibiotics -HIV, acute hep panel are within normal limits -Monitor LFTs, lipase Drug rash: I have advised patient not to take Bactrim anymore Dress syndrome? 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
--- NOTE | 2024-05-05 14:28 | USR_ITS ---
PROCEDURE INFORMATION: Exam: US Abdomen, Limited; Right Upper Quadrant Exam date and time: 05/05/2024 7:16 AM Age: 78 years old Clinical indication: Abnormal findings; Abnormal radiologic finding of the abdomen; Radiologic exam and body structure: CT gb; Additional info: Liver and gallbladder, npo at midnight. Will scan in the am. CR TECHNIQUE: Imaging protocol: Real time ultrasound of the abdomen with image documentation. Limited exam focused on the right upper quadrant. COMPARISON: [place] [id number] 05/03/2024 10:48 PM FINDINGS: Liver: Diffusely increased echogenicity seen in the liver. Gallbladder: Gallstones and sludge are seen in the gallbladder. There is gallbladder wall thickening measuring 4 mm. Biliary ducts: The common bile duct measures 6 mm. Pancreas: Evaluation of the pancreas is somewhat suboptimal due to overlying bowel gas. Right kidney: Right kidney measures 10.5 x 4.1 x 4.6 cm. 127 mL. Aorta: Visualized abdominal aorta is unremarkable. US/US gall bladder [id number] IMPRESSION: 1. Cholelithiasis with gallbladder sludge and thickened gallbladder wall. Early acute cholecystitis can not be excluded. Clinical correlation is advised. If indicated, HIDA scan can be obtained for further evaluation 2. Likely fatty changes of the liver.
[2024-05-05 14:31] LABS: LAB Peripheral Smear Sent for Review
[2024-05-05 14:48] LABS: Lactate Dehydrogenase 344 U/L (135-225)
[2024-05-05] MEDS: cefTRIAXone 2,000 mg SDV 2000 MG IVP (21:52)
[2024-05-06] VITALS: BP 125/68; PULSE 90; RESP 13; TEMP 37.1; O2SAT 94
[2024-05-06 04:00] VITALS: BP 128/68; PULSE 87; RESP 16; TEMP 36.8; O2SAT 93
[2024-05-06 04:18] LABS: Basophils % 0.2 %; Eosinophils # 0.2 10^3/uL (0.0-0.8); Eosinophils % 4.3 %; Hematocrit 38.1 % (37-53); Lymphocytes # 2.4 10^3/uL (0.8-4.8); Lymphocytes % 54.9 %; Mean Corpuscular HGB Conc 34.6 g/dL (30-55); Mean Corpuscular Hemoglobin 28.7 pg (27-33); Mean Corpuscular Volume 82.8 fl (82-101); Monocytes # 0.4 10^3/uL (0.2-0.9); Monocytes % 8.5 %; Neutrophils % 32.1 %; Nucleated Red Blood Cells % 0 %; Platelet Count 107 10^3/cmm (157-399); Red Cell Distribution Width 14.7 % (12.1-15.1); White Blood Count 4.37 10^3/uL (3.29-11.43)
[2024-05-06 04:44] LABS: Lipase 69 U/L (13-60)
[2024-05-06 04:45] LABS: Alanine Aminotransferase 104 U/L (0-41); Albumin Level 3.1 g/dL (3.5-5.2); Alkaline Phosphatase 45 U/L (40-130); Anion Gap 13.6 (5-19); Aspartate Amino Transferase 180 U/L (0-40); Blood Urea Nitrogen 16 mg/dL (8-23); Calcium 7.8 mg/dL (8.5-10.5); Carbon Dioxide 20 mmol/L (22-29); Chloride 102 mmol/L (98-107); Creatinine Clr Calc Pharmacy 82.2313; Globulin 2.6 g/dL (1.3-4.6); Glucose 101 mg/dL (65-115); Magnesium 1.8 mg/dL (1.7-2.3); Osmolality Calculated 275 mOsm/kg (285-295); Phosphorus 2.8 mg/dL (2.5-4.5); Potassium 3.6 mmol/L (3.5-5.1); Sodium 132 mmol/L (136-145); Total Bilirubin 0.2 mg/dL (0.15-1.2); Total Protein 5.7 g/dL (6.6-8.7)
[2024-05-06 06:00] VITALS: BMI 32.0
[2024-05-06 07:50] VITALS: BP 147/79; PULSE 87; RESP 18; TEMP 36.6; O2SAT 93
--- NOTE | 2024-05-06 09:05 | PC.CHAP ---
Pastoral Care Encounter/Spiritual Assessment Type of Contact [] Declined field examiner visit [] Patient/Family/Request visit [] Outpatient visit [] Follow-up visit [] Physician referral [] Code/Alert [x] Routine visit [] Staff referral [] Actively dying [] Patient sleeping [] Family support [] [] Out of room [] Palliative care [] [x] Receiving care in room [] Pre-surgical visit [] Trauma [] Long length of stay [] ICU visit [] Other: Relational/Emotional Strength [] Patient feels connected with others/family/visitors/staff [] Distress [] Loneliness/isolation [] Abandonment Spirituality of Patient [] Person of Winsome [] Attends Anglican of their Winsome [] Believes in Prayer [] Reads Bible or Lutheran materials [] There are Spiritual issues to be addressed Atg Java Developer Interventions [] Prayer [] Active listening [] Non-anxious presence [] Spiritual/emotional support [] Crisis/trauma care [] Spiritual counseling [] Bereavement support [] Provided bereavement packet [] Provided Bible/devotional materials [] Provided toy/stuffed animal, coloring book to patient or family member [] Provided Communion [] Anointing/[place] [] Salvation [] Completed spiritual assessment [] Other: Impact on Illness or Injury [] Angry [] Fearful [] Anxious [] Often cries [] Exhaustion [] Unable to work [] Unable to attend pentecostalism [] Unable to walk/stand [] Unable to read [] Unable to drive [] Unable to eat/drink [] Unable to sleep [] Unable to be with family [] Patient intubated [] Other: Summary Time spent with patient
[2024-05-06] MEDS: apixaban 5 mg Tablet PO (09:28)
[2024-05-06] MEDS: metroNIDAZOLE 500 MG Tablet PO (09:28)
[2024-05-06] MEDS: pantoprazole 40 mg SDV IVP (09:28)
[2024-05-06] MEDS: sodium chloride 1 gm Tablet PO (09:28)
[2024-05-06] MEDS: tamsulosin 0.4 mg Capsule PO (09:28)
[2024-05-06] MEDS: sucralfate 1 gm Tablet PO (09:28)
[2024-05-06 11:25] VITALS: BP 136/69; PULSE 88; RESP 16; TEMP 36.7; O2SAT 95
--- NOTE | 2024-05-06 11:29 | PM.DCS ---
Discharge Providers Date of Admission: 05/03/24 22:51 Date of Discharge: May 06, 2024 Attending Provider at Admission: Omi Stokes MD Attending Provider at Discharge: Garret Trinidad MD Primary Care Provider: ROSENDO Call Diagnoses at Discharge Discharge Diagnosis (1) Hyponatremia: Status: Acute (2) Urinary tract infection: Status: Acute (3) Duodenitis: Status: Acute Reason for Visit Reason for Visit: WEAKNESS Hospital Course Hospital Course This is a 78-year-old male with a past medical history of a pulm embolism, DVT on Eliquis, who presents [facility] due to generalized weakness, fatigue, nausea, vomiting, diarrhea Patient was admitted to [facility] for UTI, received IV antibiotics, discharged on p.o. antibiotics, overall clinically improved For hypovolemic hyponatremia received IV fluids, salt tablet overall clinically improved, serum sodium on discharge 134 for patient's duodenitis, received Protonix, Carafate, no bloody black stools reported, no hemodynamic compromise, discharged on Protonix, Carafate, follow-up with general surgery in 2 weeks for consideration of EGD Patient also had findings concerning for adverse reaction to Bactrim, discontinue Bactrim Thrombocytopenia, platelet count on discharge 107 potentially related to Bactrim Transaminitis, no hyperbilirubinemia CT scan shows 2. Cholecystolithiasis without evidence of cholecystitis or biliary obstruction. -Ultrasound abdomen US/US gall bladder 70083 IMPRESSION: 1. Cholelithiasis with gallbladder sludge and thickened gallbladder wall. Early acute cholecystitis can not be excluded. Clinical correlation is advised. If indicated, HIDA scan can be obtained for further evaluation 2. Likely fatty changes of the liver. -No significant right upper quadrant pain to palpation -Continue IV antibiotics -HIV, acute hep panel are within normal limits -No right upper quadrant pain -He did have complaints of nausea, vomiting, diarrhea on admission -Nonetheless we will discharge him on Cipro and Flagyl -Follow-up with general surgery in 2 weeks ? Patient was advised if he has any right upper quadrant pain to me to go to emergency room Physical Exam Const: COMMON NORMALS: no acute distress and patient oriented x3 Resp: COMMON NORMALS: normal respiratory effort, No retractions, No use of accessory muscles and clear to auscultation bilaterally AUSCULTATION: clear to auscultation bilaterally Cardio: COMMON NORMALS: regular rate, regular rhythm, S1 normal heart sound present and S2 normal heart sound present RATE: regular rate RHYTHM: regular rhythm HEART SOUNDS: S1 normal heart sound present and S2 normal heart sound present GI: COMMON NORMALS: Normal to inspection, nondistended, normoactive bowel sounds present and non-tender Extremity: COMMON NORMALS: no pedal edema Neuro: COMMON NORMALS: patient oriented x3 Psych: COMMON NORMALS: mental status grossly normal Discharge Data Studies Completed and Pending Completed Studies During Hospitalization Category [place] [id number] Stat Cat Scan 05/03/24 22:32 Completed US gall bladder 44430 Routine Ultrasound 05/05/24 14:28 Completed Pending at discharge Category Date Time Status Blood Culture Stat Lab 05/03/24 22:15 Results Complete Blood Count w/Auto AM LABS Lab 05/07/24 04:00 Ordered Comprehensive Metabolic Panel AM LABS Lab 05/07/24 04:00 Ordered Lipase AM LABS Lab 05/07/24 04:00 Ordered Lipase AM LABS Lab 05/08/24 04:00 Ordered Magnesium AM LABS Lab 05/07/24 04:00 Ordered Osmolality Serum Routine Lab 05/03/24 21:22 Received Osmolality Urine Routine Lab 05/03/24 22:02 Received Phosphorus AM LABS Lab 05/07/24 04:00 Ordered Tick Panel Routine Lab 05/03/24 23:02 Received Radiology Impressions Chest/Abdomen/Pelvis CT 05/03/24 22:32 IMPRESSION: 1. Tiny bilateral pleural effusions. 2. 4 mm noncalcified left lower lobe pulmonary nodule. For patients at low risk (minimal or absent history of smoking and of other known risk factors), no routine follow-up is indicated. For patients at high risk (history of smoking or of other known risk factors), consider optional IMPRESSION: 1. Circumferential wall thickening in the 2nd portion of the duodenum with mild adjacent fat stranding. Findings are suggestive of acute duodenitis. Peptic ulcer disease is not excluded. No evidence of perforation. 2. Cholecystolithiasis without evidence of cholecystitis or biliary obstruction. 3. 6 mm urinary bladder stone. 4. Mild apparent slightly hyperdense debris in the urinary bladder. Correlation with urinalysis is recommended. COMMENTS: Consistent with the [employer]'s Incidental Findings Committee white paper (J Am Thom Radiol 2018): Any incidental renal lesion less than 1 cm or classified as too small to characterize, or any incidental cystic renal lesion characterized as simple-appearing, is likely benign. No follow-up imaging is recommended for these lesions per consensus recommendations based on imaging criteria. Gallbladder Ultrasound 05/05/24 14:28 IMPRESSION: 1. Cholelithiasis with gallbladder sludge and thickened gallbladder wall. Early acute cholecystitis can not be excluded. Clinical correlation is advised. If indicated, HIDA scan can be obtained for further evaluation 2. Likely fatty changes of the liver. Laboratory Results WBC 4.37 10^3/uL (3.29-11.43) 05/06/24 02:45 RBC 4.60 10^6/uL (3.85-5.65) 05/06/24 02:45 Hgb 13.20 g/dL (11.27-16.99) 05/06/24 02:45 Hct 38.1 % (37-53) 05/06/24 02:45 MCV 82.8 fl (82-101) 05/06/24 02:45 MCH 28.7 pg (27-33) 05/06/24 02:45 MCHC 34.6 g/dL (30-55) 05/06/24 02:45 RDW 14.7 % (12.1-15.1) 05/06/24 02:45 Plt Count 107 10^3/cmm (157-399) L 05/06/24 02:45 MPV 11.0 fL (7.4-10.4) H 05/06/24 02:45 Neut % (Auto) 32.1 % 05/06/24 02:45 Lymph % (Auto) 54.9 % 05/06/24 02:45 Glascock % (Auto) 8.5 % 05/06/24 02:45 Eos % (Auto) 4.3 % 05/06/24 02:45 Baso % (Auto) 0.2 % 05/06/24 02:45 Neut # (Auto) 1.40 10^3/uL (1.8-7.7) L 05/06/24 02:45 Lymph # (Auto) 2.4 10^3/uL (0.8-4.8) 05/06/24 02:45 Glascock # (Auto) 0.4 10^3/uL (0.2-0.9) 05/06/24 02:45 Eos # (Auto) 0.2 10^3/uL (0.0-0.8) 05/06/24 02:45 Baso # (Auto) 0.0 10^3/uL (0.0-0.1) 05/06/24 02:45 Nucleated RBC % (auto) 0 % 05/06/24 02:45 Nucleated RBCs # 0.0 /100WBC 05/06/24 02:45 Peripher Smr Path Cons Sent for review 05/05/24 01:57 Haptoglobin 166.0 mg/L (30-200) 05/05/24 13:38 Sodium 132 mmol/L (136-145) L 05/06/24 02:45 Potassium 3.6 mmol/L (3.5-5.1) 05/06/24 02:45 Chloride 102 mmol/L (98-107) 05/06/24 02:45 Carbon Dioxide 20 mmol/L (22-29) L 05/06/24 02:45 Anion Gap 13.6 (5-19) 05/06/24 02:45 BUN 16 mg/dL (8-23) 05/06/24 02:45 Creatinine 0.8 mg/dL (0.7-1.2) 05/06/24 02:45 GFR Calculation Not Reportable 05/06/24 02:45 Glucose 101 mg/dL (65-115) 05/06/24 02:45 POC Glucose 97 mg/dL (70-110) 05/05/24 06:13 Estimat Average Glucose 114 05/03/24 21:22 Hemoglobin A1c 5.6 % (4.0-6.0) 05/03/24 21:22 Calculated Osmolality 275 mOsm/kg (285-295) L 05/06/24 02:45 Lactic Acid 1.5 mmol/L (0.5-2.2) 05/03/24 21:22 Uric Acid 6.0 mg/dL (3.4-7.0) 05/03/24 21:22 Calcium 7.8 mg/dL (8.5-10.5) L 05/06/24 02:45 Phosphorus 2.8 mg/dL (2.5-4.5) 05/06/24 02:45 Magnesium 1.8 mg/dL (1.7-2.3) 05/06/24 02:45 Total Bilirubin 0.2 mg/dL (0.15-1.2) 05/06/24 02:45 AST 180 U/L (0-40) H 05/06/24 02:45 ALT 104 U/L (0-41) H 05/06/24 02:45 Alkaline Phosphatase 45 U/L (40-130) 05/06/24 02:45 Lactate Dehydrogenase 344 U/L (135-225) H 05/05/24 13:38 Total Protein 5.7 g/dL (6.6-8.7) L 05/06/24 02:45 Albumin 3.1 g/dL (3.5-5.2) L 05/06/24 02:45 Globulin 2.6 g/dL (1.3-4.6) 05/06/24 02:45 Lipase 69 U/L (13-60) H 05/06/24 02:45 Vitamin B12 537 pg/mL (232-1245) 05/03/24 21:22 TSH 1.87 uIU/mL (0.27-4.20) 05/03/24 21:22 Urine Color Yellow (Yellow) 05/03/24 22:02 Urine Appearance Cloudy (CLEAR) A 05/03/24 22:02 Urine pH 5.0 (5-7) 05/03/24 22:02 Ur Specific Hickman 1.023 (1.005-1.030) 05/03/24 22:02 Urine Protein 2+ (Negative) A 05/03/24 22:02 Urine Glucose (UA) Negative (Normal) 05/03/24 22:02 Urine Ketones 1+ (Negative) H 05/03/24 22:02 Urine Blood 3+ (Negative) A 05/03/24 22:02 Urine Nitrate Negative (Negative) 05/03/24 22:02 Urine Bilirubin Negative (Negative) 05/03/24 22:02 Urine Urobilinogen 1.0 mg/dL (Negative) 05/03/24 22:02 Ur Leukocyte Esterase Negative (Negative) 05/03/24 22:02 Urine RBC 0-4 /hpf (0-2) H 05/03/24 22:02 Urine WBC 0-4 /hpf (0-5) H 05/03/24 22:02 Ur Squamous Epith Cells 0-4 /hpf (0-5) H 05/03/24 22:02 Amorphous Sediment Not Reportable 05/03/24 22:02 Urine Bacteria Trace /hpf (NONE) 05/03/24 22:02 Coarse Granular Casts 5-10 /lpf H 05/03/24 22:02 Urine Mucus Trace /hpf 05/03/24 22:02 Ur Random Microalbumin 35 ug/dL (0-20) H 05/03/24 22:02 Ur Random Sodium 27 mmol/L 05/03/24 22:02 Urine Creatinine 175 mg/dL (39-259) 05/03/24 22:02 Microalb/Creat Ratio 200 mg/dL (0-20) H 05/03/24 22:02 Urine Opiates Screen Negative ng/mL (Negative) 05/03/24 22:02 Ur Barbiturates Screen Negative ng/mL (Negative) 05/03/24 22:02 Ur Phencyclidine Scrn Negative ng/mL (Negative) 05/03/24 22:02 Ur Amphetamines Screen Negative ng/mL (Negative) 05/03/24 22:02 U Benzodiazepines Scrn Positive ng/mL (Negative) H 05/03/24 22:02 Urine Cocaine Screen Negative ng/mL (Negative) 05/03/24 22:02 U Marijuana (THC) Screen Negative ng/mL (Negative) 05/03/24 22:02 Ethyl Alcohol < 10 mg/dL (0-10) 05/03/24 21:22 Hepatitis A IgM Ab Non-reactive (Nonreactive) 05/04/24 02:44 Hep Bs Antigen Non-reactive (Nonreactive) 05/04/24 02:44 Hep B Core IgM Ab Non-reactive (Nonreactive) 05/04/24 02:44 Hepatitis C Antibody Non-reactive (Nonreactive) 05/04/24 02:44 HIV 1&2 Ab & HIV 1 Ag Non-reactive (Non-Reactiv) 05/04/24 02:44 HIV 1&2 Antibody Non-reactive (Non-Reactiv) 05/04/24 02:44 Vitals Last Vital Signs Temp 98.1 F 05/06/24 11:25 Pulse 88 05/06/24 11:25 Resp 16 05/06/24 11:25 BP 136/69 05/06/24 11:25 Pulse Ox 95 05/06/24 11:25 O2 Del Method Room Air 05/06/24 11:25 Discharge Plan Discharge Patient Disposition: Home Condition: Stable Prescriptions: New pantoprazole [Protonix] 40 mg tablet,delayed release (DR/EC) 40 mg PO BID 30 Days Qty: 60 0RF metronidazole 500 mg Tablet 500 mg PO TID 10 Days Qty: 30 0RF ciprofloxacin HCl 500 mg tablet 500 mg PO BID 10 Days Qty: 20 0RF sucralfate [Carafate] 1 gram tablet 1 g PO BID 28 Days Qty: 56 0RF Continued atorvastatin 10 mg Tablet 10 mg PO QPM tamsulosin [Flomax] 0.4 mg Capsule 0.8 mg PO BEDTIME Fish Oil Capsule 1,000 mg PO DAILY Eliquis 5 mg Tablet 5 mg PO BID Trelegy Ellipta 100-62.5-25 mcg Blister With Device 1 inh INHALATION 0600 Discontinued sulfamethoxazole-trimethoprim [Bactrim DS] 800-160 mg Tablet 1 tab PO BID Discharge Orders: Discharge Order (Routine); Ordered 05/06/24 Ordered By: Garret Trinidad Referrals: Tyrese Pierre MD [Physician] - 2 weeks Gem Noriega FNP [Primary Care Provider] - 05/14/24 2:00 pm Discharge Diet: GI Soft Discharge Activity: Resume usual activity Patient Instructions: Opioid Safety Activity Restrictions/Additional Instructions: -if any ruq abdominal pain, nausea, vomiting please go to emergency room Assessment: - If right upper quadrant pain, nausea, vomiting, fevers please come back to the emergency room -For your primary care provider recheck your liver function in 1 week ? If any hematemesis, black or tarry stools please immediately go to emergency room Discharge Attestations Time Spent in Discharge Care*: greater than 30 min Quality Metrics Clinical Quality Measures [ No reported AMI, CVA or VTE this stay] Coding Level of Care Code 21238 Total time (in minutes) for Discharge: 45 Diagnoses Hyponatremia E87.1 Urinary tract infection N39.0 Duodenitis K29.80
--- NOTE | 2024-05-06 11:49 | PC.SOCIAL ---
IMM Updated Updated pt on IMM. No questions voiced. Provided pt a copy. Initialed, dated, & timed a copy & placed in chart.
[2024-05-06 13:59] VITALS: BP 138/69; PULSE 88; RESP 16; TEMP 36.7; O2SAT 95
[2024-05-06 15:53] LABS: Lyme AB Screen <0.90 index
[2024-05-08 14:55] LABS: Osmolality Urine 703 mOsm/kg (50-1200)
[2024-05-08 21:45] LABS: E. Chaffeensis AB IGG <1:64; E. Chaffeensis AB IGM <1:20
[2024-05-09 16:45] LABS: RMSF IGG NOT DETECTED; RMSF IGM NOT DETECTED
[2024-05-09 16:53] LABS: Osmolality Serum 262 mOsm/kg (278-305)
== END 2024-05-06 13:45 | disposition home or self-care (01) | DRG 690 ==
LOC: ER 22:27 → MEDSURG 22:52
PROVIDERS: Admitting Provider Internal Medicine; Emergency Provider Emergency Medicine; PCP Nurse Practitioner Family; Visit Provider Family Medicine
DX: N39.0 Urinary tract infection, site not specified (principal); E87.1 Hypo-osmolality and hyponatremia; N17.9 Acute kidney failure, unspecified; E86.1 Hypovolemia; K29.80 Duodenitis without bleeding; Z86.711 Personal history of pulmonary embolism; Z86.718 Personal history of other venous thrombosis and embolism; D69.59 Other secondary thrombocytopenia; T36.8X5A Adverse effect of other systemic antibiotics, initial encounter; Z79.01 Long term (current) use of anticoagulants; Z79.51 Long term (current) use of inhaled steroids; Z88.2 Allergy status to sulfonamides; E86.0 Dehydration; K80.20 Calculus of gallbladder without cholecystitis without obstruction; L27.1 Localized skin eruption due to drugs and medicaments taken internally
CPT/HCPCS: 36415; 36416; 71250; 74176; 76705; 80053; 80074; 80306; 80307; 80503; 81001; 82044; 82607; 82962; 83010; 83036; 83605; 83615; 83690; 83735; 83930; 83935; 84100; 84295; 84300; 84443; 84550; 85025; 86618; 86666; 86757; 87040; 87806; 96361; 96372; 96374; 97116; 97161; 97530; 99285; J0696; J1644; J2470; J7030; Q3014

== ENCOUNTER → 2024-05-14 07:42 | Outpatient (BNVA) | payer MEDICARE, OTHER, SELFPAY | PROVIDERS: PCP Nurse Practitioner Family; Visit Provider Surgery | DX: R19.7 Diarrhea, unspecified (principal) | CPT/HCPCS: 99203 ==

== ENCOUNTER → 2024-05-28 10:30 | Outpatient (BNVA) | payer MEDICARE, OTHER, SELFPAY | PROVIDERS: PCP Nurse Practitioner Family; Visit Provider Surgery | DX: K29.80 Duodenitis without bleeding (principal) | CPT/HCPCS: 99213 ==